=== PATIENT | female | born 1975 | race Caucasian/White ===

== ENCOUNTER 2017-04-05 08:40 | Day surgery (SDC) | payer BC ==
[~2017-04-05] VITALS: Ht 154.9 cm; Wt 81.2 kg
[~2017-04-05 08:40] MED LIST: Augmentin PO; DIOVAN160 MG PO; ENDOCET 5-3251 EACH PO; Flagyl PO; IBUPROFEN800 MG PO; LEXAPRO5 MG PO; LIBRAX, CLI1 CAPSULE PO; NEXIUM 24HR20 MG PO; Protonix PO; TOPROL XL100 MG PO; Ultram PO; ZOFRAN ODT4 MG PO; ZOFRAN4 MG PO
[2017-04-05 09:11] VITALS: BP 130/86
[2017-04-05 13:28] VITALS: BP 130/68
[2017-04-05 14:23] VITALS: BP 130/69
== END 2017-04-05 14:32 | disposition home or self-care (01) ==
LOC: SDC 08:40
PROC: 0UT24ZZ Resection of Bilateral Ovaries, Percutaneous Endoscopic Approach (ICD-10-PCS; principal; 2017-04-05)
DX: N83.02 Follicular cyst of left ovary (principal); N83.12 Corpus luteum cyst of left ovary; N83.11 Corpus luteum cyst of right ovary; I10 Essential (primary) hypertension; K21.9 Gastro-esophageal reflux disease without esophagitis; Z72.0 Tobacco use
CPT/HCPCS: 88305; J0330; J1100; J1170; J1885; J2405; J2710; J3010